=== PATIENT | male | born 1960 | race Caucasian/White ===

== ENCOUNTER 2017-11-03 11:21 | Emergency (ER) | payer MEDICAID ==
[2017-11-03] MEDS ORDERED: FLUORESCEIN STRIP RIGHT EYE (13:00)
[2017-11-03] MEDS: TETRACAINE 0.5% 4 ML OPH RIGHT EYE (13:47)
[2017-11-03] MEDS: DIPHTH/TET/ACEL PERTUSS (ADULT) 0.5 ML VIAL IM* (13:48)
== END 2017-11-03 15:41 | disposition home or self-care (01) ==
LOC: FTE 11:21
DX: S05.91XA Unspecified injury of right eye and orbit, initial encounter (principal); X58.XXXA Exposure to other specified factors, initial encounter; Y92.69 Other specified industrial and construction area as the place of occurrence of the external cause; Z23 Encounter for immunization
CPT/HCPCS: 90471; 90715; 99283-25